=== PATIENT | male | born 1985 | race Caucasian/White ===

== ENCOUNTER 2019-07-04 10:19 | Emergency (ER) | payer OTHER ==
[2019-07-04 10:44] VITALS: RESP 16
[2019-07-04] MEDS ORDERED: SODIUM CHLORIDE 0.9% 1,000 ML IV ONE (11:09)
[2019-07-04] MEDS ORDERED: SODIUM CHLORIDE 0.9% 1,000 ML IV SCH (11:15)
[2019-07-04 11:24] LABS: Basophils # (A) 0.1 k/uL (0-0.2); Basophils % (A) 1 %; Eosinophils # (A) 0.3 k/uL (0-0.7); Eosinophils % (A) 2 %; HCT 42.6 % (39.0-53.0); HGB 14.4 gm/dL (13.0-17.5); Lymphocytes # (A) 1.5 k/uL (1.0-4.8); Lymphocytes % (A) 12 %; MCH 28.6 pg (25.0-35.0); MCHC 33.8 g/dL (31.0-37.0); MCV 84.7 fL (80.0-100.0); Mean Platelet Volume 6.3; Monocytes # (A) 0.5 k/uL (0-1.0); Monocytes % (A) 4 %; Neutrophils # (A) 9.7 k/uL (1.3-7.7); Neutrophils % (A) 80 %; Platelet Count 427 k/uL (150-450); RBC 5.03 m/uL (4.30-5.90); RDW 12.4 % (11.5-15.5); WBC 12.1 k/uL (3.8-10.6)
[2019-07-04 11:32] LABS: ALT 25 U/L (21-72); AST 25 U/L (17-59); African American GFR (CKD) >90 (>60 ml/min/1.73 sqM); Albumin 4.8 g/dL (3.5-5.0); Alkaline Phosphatase 71 U/L (38-126); Anion Gap 14 mmol/L; Blood Urea Nitrogen 9 mg/dL (9-20); Calcium 9.8 mg/dL (8.4-10.2); Carbon Dioxide 23 mmol/L (22-30); Chloride 106 mmol/L (98-107); Glucose 82 mg/dL (74-99); Potassium 4.2 mmol/L (3.5-5.1); Sodium 143 mmol/L (137-145); Total Bilirubin 1.3 mg/dL (0.2-1.3)
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
--- NOTE | 2019-07-04 12:27 | ED ---
Psych HPI <Gurvinder Ly - Last Filed: 07/04/19 15:56> - General Source: patient, RN notes reviewed, old records reviewed Mode of arrival: ambulatory <Shaina Garcia - Last Filed: 07/04/19 16:04> - General Chief Complaint: Psychiatric Symptoms Stated Complaint: Sucidal Time Seen by Provider: 07/04/19 10:54 - History of Present Illness Initial Comments: This Patient is a 33-year-old male presents emergency departmnt today with suicide attempt. Patient reports last night while he was intoxicated, He had an argument with his girlfriend. Patient then attempted to strangle himself with a dog leash. His girlfriend found him. The girlfriend then had someone stay with him throughout the night, and family, his sister was informed this morning. His sister and family brought him to the ER for evaluation today. No history of suicidal attempts. Denies any history of significant depression or being hospitalized for psychiatric needs. Patient reports that things were just overwhelming while he was at home. She complains some minor neck pain at this time. He does not know if he lost consciousness during this time. (Shaina Garcia) - Related Data Home Medications Medication Instructions Recorded Confirmed No Known Home Medications 07/04/19 07/04/19 Allergies Allergy/AdvReac Type Severity Reaction Status Date / Time erythromycin base AdvReac Nausea & Verified 07/04/19 10:57 Vomiting Review of Systems ROS Other: All systems not noted in ROS Statement are negative. <Gurvinder Ly - Last Filed: 07/04/19 15:56> ROS Other: All systems not noted in ROS Statement are negative. <Shaina Garcia - Last Filed: 07/04/19 16:04> ROS Statement: Those systems with pertinent positive or pertinent negative responses have been documented in the HPI. Past Medical History Past Medical History: No Reported History History of Any Multi-Drug Resistant Organisms: None Reported Past Surgical History: No Surgical Hx Reported Past Psychological History: Depression Smoking Status: Never smoker Past Alcohol Use History: Daily Past Drug Use History: None Reported <Shaina Garcia - Last Filed: 07/04/19 16:04> General Exam Limitations: no limitations General appearance: alert, in no apparent distress Head exam: Present: atraumatic, normocephalic, normal inspection Eye exam: Present: normal appearance, PERRL, EOMI. Absent: scleral icterus, conjunctival injection, periorbital swelling ENT exam: Present: normal exam, mucous membranes moist Neck exam: Absent: normal inspection (Patient has minor contusion of her neck on R side. ), tenderness, meningismus, lymphadenopathy Respiratory exam: Present: normal lung sounds bilaterally. Absent: respiratory distress, wheezes, rales, rhonchi, stridor Cardiovascular Exam: Present: regular rate, normal rhythm, normal heart sounds. Absent: systolic murmur, diastolic murmur, rubs, gallop, clicks GI/Abdominal exam: Present: soft, normal bowel sounds. Absent: distended, tenderness, guarding, rebound, rigid Extremities exam: Present: normal inspection, full ROM, normal capillary refill. Absent: tenderness, pedal edema, joint swelling, calf tenderness Back exam: Present: normal inspection Neurological exam: Present: alert, oriented X3, CN II-XII intact Psychiatric exam: Present: normal affect, normal mood, depressed Skin exam: Present: warm, dry, intact, normal color. Absent: rash <Shaina Garcia - Last Filed: 07/04/19 16:04> - General Exam Comments Initial Comments: 33-year-old male. Alert and oriented 3. Patient appears in no significant distress. Does appear depressed. (Shaina Garcia) Course <Gurvinder Ly - Last Filed: 07/04/19 15:56> Vital Signs 07/04/19 10:42 Temperature 98.5 F Pulse Rate 102 H Respiratory 16 Rate Blood Pressure 146/82 O2 Sat by Pulse 100 Oximetry - Reevaluation(s) Reevaluation #1: 07/04/19 15:56 PA supervision: I proceeded [id number] evaluation the patient first initially when he presented and then after evaluation by the psychiatric service. I did a reevaluation the patient after the above. His sister was present. I had a long discussion with patient regarding the findings and what initiated the actions last evening. Patient is remorseful and has assured me that he will not try to attempt to hurt himself began and will stay away from alcohol. He will follow- up with outpatient counseling as needed. His sister is in agreement with this. She'll be discharged. (Gurvinder Ly) Medical Decision Making - Lab Data Result diagrams: 07/04/19 11:05 07/04/19 11:05 <Gurvinder Ly - Last Filed: 07/04/19 15:56> - Lab Data Result diagrams: 07/04/19 11:05 07/04/19 11:05 - Radiology Data Radiology results: report reviewed <Shaina Garcia - Last Filed: 07/04/19 16:04> - Medical Decision Making This is a 33-year-old male presents with suicide attempt by hanging last night. He attempted to hang himself on a dog leash, he complains of minor neck pain. Patient CT soft tissue neck was negative for any acute process. Blood work was reviewed and unremarkable. Patient is medically clear at this time for evaluation by EPS. Patient was evaluated. EPS initially plan to discharge this Patient home. Family became quite upset about this. Was then reevaluated by Dr. Ly, and after lengthy discussion with patient and family, they do agree the Patient would be stable for discharge home. Patient denies any active suicidal thoughts. He states that he knows the has resources to follow up with. Patient was given resources for outpatient follow-up and will be discharged home with family. (Shaina Garcia) - Lab Data Lab Results 07/04/19 07/04/19 Range/Units 11:05 11:05 WBC 12.1 H (3.8-10.6) k/uL RBC 5.03 (4.30-5.90) m/uL Hgb 14.4 (13.0-17.5) gm/dL Hct 42.6 (39.0-53.0) % MCV 84.7 (80.0-100.0) fL MCH 28.6 (25.0-35.0) pg MCHC 33.8 (31.0-37.0) g/dL RDW 12.4 (11.5-15.5) % Plt Count 427 (150-450) k/uL Neutrophils % 80 % Lymphocytes % 12 % Monocytes % 4 % Eosinophils % 2 % Basophils % 1 % Neutrophils # 9.7 H (1.3-7.7) k/uL Lymphocytes # 1.5 (1.0-4.8) k/uL Monocytes # 0.5 (0-1.0) k/uL Eosinophils # 0.3 (0-0.7) k/uL Basophils # 0.1 (0-0.2) k/uL Sodium 143 (137-145) mmol/L Potassium 4.2 (3.5-5.1) mmol/L Chloride 106 (98-107) mmol/L Carbon Dioxide 23 (22-30) mmol/L Anion Gap 14 mmol/L BUN 9 (9-20) mg/dL Creatinine 0.71 (0.66-1.25) mg/dL Est GFR (CKD-EPI)AfAm >90 (>60 ml/min/1.73 sqM) Est GFR (CKD-EPI)NonAf >90 (>60 ml/min/1.73 sqM) Glucose 82 (74-99) mg/dL Calcium 9.8 (8.4-10.2) mg/dL Total Bilirubin 1.3 (0.2-1.3) mg/dL AST 25 (17-59) U/L ALT 25 (21-72) U/L Alkaline Phosphatase 71 (38-126) U/L Total Protein 8.0 (6.3-8.2) g/dL Albumin 4.8 (3.5-5.0) g/dL 07/04/19 12:52 EKG shows sinus rhythm abnormal EKG noted. Ventricular rate of 81 bpm. Verbal 1:30 milliseconds. QS duration is 90 ms. QT QTc is 370/439 ms. (Shaina Garcia) - Radiology Data CT soft tissue neck is negative for any acute process. (Shaina Garcia) Disposition <Gurvinder Ly - Last Filed: 07/04/19 15:56> Is patient prescribed a controlled substance at d/c from ED?: No Time of Disposition: 16:04 <Shaina Garcia - Last Filed: 07/04/19 16:04> Clinical Impression: Adjustment reaction, Situational depression Disposition: HOME SELF-CARE Condition: Good Instructions (If sedation given, give patient instructions): Suicide Prevention (ED) Additional Instructions: Patient has a follow-up with outpatient services. Return to the emergency department if any alarming signs or symptoms occur. Referrals: None,Stated [Primary Care Provider] - 1-2 days
[2019-07-04 16:38] VITALS: TEMP 97.6
[2019-07-04 16:39] VITALS: BP 142/67; PULSE 93
== END 2019-07-04 16:36 | disposition home or self-care (01) ==
LOC: EC 10:19
DX: F43.21 Adjustment disorder with depressed mood (principal); S10.93XA Contusion of unspecified part of neck, initial encounter; Z88.1 Allergy status to other antibiotic agents; X83.8XXA Intentional self-harm by other specified means, initial encounter
CPT/HCPCS: 82075; 36415; 93005; 80053; 85025; 70491; 99285; 96360; 96361 ×4; Q9967